=== PATIENT | female | born 1995 | race Caucasian/White ===

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

== ENCOUNTER 2017-10-20 22:54 | Emergency (ER) | payer OTHER ==
--- NOTE | 2017-10-21 00:38 | ED ---
General Adult HPI - General Chief complaint: Extremity Injury, Upper Stated complaint: ELBOW INJURY Time Seen by Provider: 10/21/17 00:20 Source: patient, RN notes reviewed Mode of arrival: ambulatory Limitations: no limitations - History of Present Illness Initial comments: 22-year-old female since to the emergency department for a chief complaint of left elbow pain 2 hours. Patient states she was jumping on the trampoline when she went to catch herself with her arms and had left elbow pain. Patient states she heard a pop in her left elbow. Patient states her right elbow was hurting somewhat but has resolved at this time. Patient denies any pain in the left shoulder and left wrist or hand. Patient did not hit her head or sustain any other injuries.Patient has no other complaints at this time including shortness of breath, chest pain, abdominal pain, nausea or vomiting, headache, or visual changes. - Related Data Home Medications Medication Instructions Recorded Confirmed Lansoprazole [Prevacid] 30 mg PO DAILY 08/13/16 08/13/16 Velivet Control 1 tab PO DAILY 08/13/16 08/13/16 Previous Rx's Medication Instructions Recorded Buta/APAP/Caf/Cod [id number] 1 - 2 cap PO Q4H #12 capsule 08/13/16 [Fioricet w/Cod 01-370-05-30MG] Ondansetron Odt [Zofran Odt] 4 mg PO Q8HR PRN #12 tab 08/13/16 Allergies Allergy/AdvReac Type Severity Reaction Status Date / Time No Known Allergies Allergy Verified 10/20/17 23:09 Review of Systems ROS Statement: Those systems with pertinent positive or pertinent negative responses have been documented in the HPI. ROS Other: All systems not noted in ROS Statement are negative. Past Medical History Past Medical History: No Reported History History of Any Multi-Drug Resistant Organisms: None Reported Past Surgical History: No Surgical Hx Reported Past Psychological History: No Psychological Hx Reported Smoking Status: Never smoker Past Alcohol Use History: None Reported Past Drug Use History: None Reported General Exam Limitations: no limitations General appearance: alert, in no apparent distress Head exam: Present: atraumatic, normocephalic, normal inspection Eye exam: Present: normal appearance. Absent: scleral icterus, conjunctival injection ENT exam: Present: normal exam, mucous membranes moist Neck exam: Present: normal inspection, full ROM. Absent: tenderness, meningismus, lymphadenopathy Respiratory exam: Present: normal lung sounds bilaterally. Absent: respiratory distress, wheezes, rales, rhonchi, stridor Cardiovascular Exam: Present: regular rate, normal rhythm, normal heart sounds. Absent: systolic murmur, diastolic murmur, rubs, gallop, clicks Extremities exam: Present: tenderness (Tenderness to the bilateral epicondyles of the left elbow as well as the anterior elbow.), normal capillary refill ( Capillary refill less than 2 seconds and radial pulse 2+ in the upper extremities bilaterally), other (Sensation intact in lower extremities bilaterally). Absent: full ROM (Patient has about 90 of flexion of the left elbow, full extension. Full range motion of the left hand), joint swelling (No swelling or ecchymosis noted in the elbows bilaterally) Course Vital Signs 10/20/17 10/21/17 23:06 02:08 Temperature 98.1 F 98.7 F Pulse Rate 91 88 Respiratory 18 16 Rate Blood Pressure 117/83 107/58 O2 Sat by Pulse 99 99 Oximetry Medical Decision Making - Medical Decision Making 22-year-old female presents to the emergency determine for a chief complaint of left elbow pain 2 hours. Patient fell on the trampoline catching herself with her arms and felt a pop in her left elbow. Neurovascular intact in the left upper extremity. Patient denies pain in the shoulder or wrist. Negative scaphoid tenderness. X-ray shows no fracture in the left elbow. Patient likely has a sprain of the left elbow. Patient educated to rest ice compress and elevate the elbow. She was also educated to take Motrin and Tylenol for pain. Patient educated to follow up with primary care in 1-2 days. Patient aware that if symptoms do not resolve in 7-10 days she Disposition Clinical Impression: Sprain of elbow, left Disposition: HOME SELF-CARE Condition: Good Instructions: Elbow Sprain (ED), RICE Therapy (ED) Additional Instructions: Please take Motrin and Tylenol for pain. Please rest ice and elevate the elbow. Follow-up with primary care in 1-2 days. Return to the emergency department if you have any worsening symptoms. Is patient prescribed a controlled substance at d/c from ED?: No Referrals: Jo Rodriguez MD [Primary Care Provider] - 1-2 days Time of Disposition: 01:54
--- NOTE | 2017-10-21 01:04 | XR ---
EXAMINATION TYPE: XR elbow complete LT DATE OF EXAM: 10/21/2017 COMPARISON: NONE HISTORY: Elbow injury. Pain. TECHNIQUE: 3 views FINDINGS: I see no fracture nor dislocation. Joint spaces are normal. There is no sign of elbow joint effusion. IMPRESSION: Negative left elbow exam.
[2017-10-21 02:10] VITALS: BP 107/58; PULSE 88; RESP 16; TEMP 98.7
== END 2017-10-21 02:11 | disposition home or self-care (01) ==
LOC: EC 22:54
DX: S53.402A Unspecified sprain of left elbow, initial encounter (principal); W09.8XXA Fall on or from other playground equipment, initial encounter; Y93.44 Activity, trampolining
CPT/HCPCS: 99283

== ENCOUNTER 2019-06-10 15:40 | Outpatient (CLI) | payer SELFPAY ==
[2019-06-10 16:30] VITALS: BP 130/77; PULSE 119; RESP 18; TEMP 98.2
--- NOTE | 2019-06-14 06:51 | P.MSEPDOC ---
Presenting Problems - Arrival Data Date of Arrival on Unit: 06/10/19 Time of Arrival on Unit: 15:40 Mode of Transport: Ambulatory - Complaint OB-Reason for Admission/Chief Complaint: Rule Out SROM Medical History - Information : 2 Para: 0 Term: 0 : 0 Abortions: Spontaneous or Elective: 1 Number of Living Children: 0 - Gestational Age Gestational Age by MIHAI (wks/days): 38 Weeks and 2 Days - History Complications: Other Comment: Grade III placenta Review of Systems - Review of Systems Constitutional: No problems Breast: No problems ENT: No problems Cardiovascular: No problems Respiratory: No problems Gastrointestinal: No problems Genitourinary: No problems Musculoskeletal: No problems Neurological: No problems Skin: No problems Vital Signs - Temperature Temperature: 98.2 F Temperature Source: Temporal Artery Scan - Pulse Pulse Oximetery Pulse Rate: 119 Pulse Assessment Method: Pulse Oximetry - Respirations Respiratory Rate: 18 Oxygen Delivery Method: Room Air O2 Sat by Pulse Oximetry: 98 - Blood Pressure Right Arm Sitting Blood Pressure: 130/77 Blood Pressure Mean: 94 Blood Pressure Source: Automatic Cuff Medical Screen Scoring (Pre) - Cervical Exam Dilation: 4-7 cm = 2 Membranes: Intact - Uterine Contractions Frequency: > 5 minutes apart = 1 Duration: N/A Intensity: N/A - Maternal Vital Signs Maternal Temperature: N/A Maternal Blood Pressure: N/A Signs of Preeclampsia: N/A Maternal Respirations: N/A - Maternal Trauma Maternal Trauma: N/A - Assessment - Baby A Baseline FHR: 135 Heart Rate - NICHD Category: Category I (Normal) = 0 NST: Reactive Position: N/A Station: N/A - Total Score - Baby A Total Score - Baby A: 3 - Total Score - Baby B Total Score - Baby B: 3 - Total Score - Baby C Total Score - Baby C: 3 - Level of Risk - Baby A Level of Risk - Baby A: Low (0-5) - Level of Risk - Baby B Level of Risk - Baby B: Low (0-5) - Level of Risk - Baby C Level of Risk - Baby C: Low (0-5) Physician Notification (Pre) - Physician Notified Physician Notified Date: 06/10/19 Physician Notified Time: 16:05 New Order Received: Yes - Notification Comment Comment: reported neg amnisure, reactive NST, cervical exam of 4cm is the same as last per Dr Fam's exam, mild irr contx. Pt may go home and f/u in the office on 06/15/[address] Fam per t.oLolita Griffith Disposition - Disposition OB Disposition: Physician follow up in office, Triage, Discharge to home, Written follow up instructions reviewed Discharge Date: 06/10/19 Discharge Time: 16:19 I agree with the RN Medical Screening Exam: Yes Risk & Benefit of care provided described in d/c instruction: Yes Diagnosis: FALSE LABOR AT OR AFTER 37 COMPLETED WEEKS OF GESTATION
== END 2019-06-10 16:22 | disposition home or self-care (01) ==
LOC: FBPOP 15:40
PROVIDERS: ATTEND Obstetrics & Gynecology
DX: O47.1 False labor at or after 37 completed weeks of gestation (principal); Z3A.38 38 weeks gestation of pregnancy
CPT/HCPCS: 59025; 99213

== ENCOUNTER 2021-11-29 17:47 | Emergency (ER) | payer OTHER ==
[2021-11-29 18:12] VITALS: BP 129/69; PULSE 71; RESP 16; TEMP 98.3
[2021-11-29] MEDS ORDERED: SODIUM CHLORIDE 0.9% 1,000 ML IV STA (20:14)
[2021-11-29] MEDS ORDERED: ONDANSETRON 4 MG/2 ML VIAL IVP STA (20:14)
[2021-11-29 20:31] LABS: Basophils % (A) 0 %; Eosinophils # (A) 0.1 k/uL (0-0.7); Eosinophils % (A) 2 %; HCT 41.7 % (34.0-46.0); Lymphocytes % (A) 35 %; MCHC 33.6 g/dL (31.0-37.0); MCV 89.1 fL (80.0-100.0); Monocytes # (A) 0.3 k/uL (0-1.0); Monocytes % (A) 4 %; Neutrophils # (A) 4.9 k/uL (1.3-7.7); Neutrophils % (A) 58 %; Platelet Count 312 k/uL (150-450); RBC 4.67 m/uL (3.80-5.40); RDW 12.9 % (11.5-15.5); WBC 8.5 k/uL (3.8-10.6)
[2021-11-29 20:42] LABS: ALT 17 U/L (4-34); AST 22 U/L (14-36); African American GFR (CKD) >90 (>60 ml/min/1.73 sqM); Albumin 4.9 g/dL (3.5-5.0); Alkaline Phosphatase 101 U/L (38-126); Anion Gap 13 mmol/L; Blood Urea Nitrogen 14 mg/dL (7-17); Calcium 9.9 mg/dL (8.4-10.2); Carbon Dioxide 23 mmol/L (22-30); Chloride 103 mmol/L (98-107); Glucose 87 mg/dL (74-99); Non-African American GFR(CKD) >90 (>60 ml/min/1.73 sqM); Sodium 139 mmol/L (137-145); Total Bilirubin 0.3 mg/dL (0.2-1.3); Total Protein 7.9 g/dL (6.3-8.2)
--- NOTE | 2021-11-29 20:45 | ED ---
General Adult HPI - General Chief complaint: Vaginal Bleeding Stated complaint: vaginal bleeding Time Seen by Provider: 11/29/21 19:50 Source: patient, RN notes reviewed Mode of arrival: ambulatory Limitations: no limitations - History of Present Illness Initial comments: 26-year-old female presents to the emergency department for evaluation of heavy vaginal bleeding x3 days. Reports passing large clots. States she had a moderate amount of abdominal cramping preceding the onset of bleeding. States last menstrual period was in September. status is unknown. Complains of mild nausea and some dizziness. Denies fever, chills, chest pain, shortness of breath, back pain, flank pain, abdominal pain, vomiting, diarrhea, or dysuria. - Related Data Home Medications Medication Instructions Recorded Confirmed Vit No.180/Iron/Folic 1 caplet PO 06/10/19 [ Plus Tablet] Previous Rx's Medication Instructions Recorded Ibuprofen [Motrin] 600 mg PO Q8HR PRN #30 tab 11/30/21 Allergies Allergy/AdvReac Type Severity Reaction Status Date / Time No Known Allergies Allergy Verified 10/20/17 23:09 Review of Systems ROS Statement: Those systems with pertinent positive or pertinent negative responses have been documented in the HPI. ROS Other: All systems not noted in ROS Statement are negative. Past Medical History Past Medical History: No Reported History History of Any Multi-Drug Resistant Organisms: None Reported Past Surgical History: No Surgical Hx Reported Past Psychological History: No Psychological Hx Reported Smoking Status: Never smoker Past Alcohol Use History: None Reported Past Drug Use History: None Reported General Exam Limitations: no limitations (Well-developed, well-nourished female in no acute distress. Initial temperature 98.3, pulse 71, respiration 16, blood pressure 129/69, pulse ox 99% on room air.) General appearance: alert, in no apparent distress Eye exam: Present: normal appearance. Absent: scleral icterus, conjunctival injection ENT exam: Present: mucous membranes moist Respiratory exam: Present: normal lung sounds bilaterally. Absent: respiratory distress, wheezes, rales, rhonchi, stridor Cardiovascular Exam: Present: regular rate, normal rhythm, normal heart sounds. Absent: systolic murmur, diastolic murmur, rubs, gallop, clicks GI/Abdominal exam: Present: soft, normal bowel sounds. Absent: distended, tenderness, guarding, rebound, rigid External exam: Present: normal external exam Speculum exam: Present: vaginal bleeding, other (few small clots visualized) By manual exam: Present: normal by manual exam. Absent: cervical motion tenderness, adnexal tenderness, uterine tenderness Back exam: Absent: CVA tenderness (R), CVA tenderness (L) Neurological exam: Present: alert, oriented X3, CN II-XII intact, normal gait Psychiatric exam: Present: normal affect, normal mood Skin exam: Present: warm, dry, intact, normal color. Absent: rash Course Vital Signs 11/29/21 18:09 Temperature 98.3 F Pulse Rate 71 Respiratory 16 Rate Blood Pressure 129/69 O2 Sat by Pulse 99 Oximetry - Reevaluation(s) Reevaluation #1: 11/29/21 23:29 Patient updated on results from workup. Discussed ultrasound now versus follow up outpatient. She prefers to obtain an ultrasound at this time and will discuss further treatment with her PREFINISH OPERATOR. Medical Decision Making - Medical Decision Making This is a pleasant 26-year-old nulliparous female who presents to the emergency department for evaluation 3 day history of heavy vaginal bleeding. LMP 3 weeks ago and reports typically has a consistent 28 day cycle. Upon exam, patient is well-appearing and in no acute distress. Her abdomen is soft and nontender. Pelvic exam is unremarkable with the exception of moderate amount of dark red vaginal bleeding. Laboratory studies were reviewed and are unremarkable. Hemoglobin is stable at 14. No leukocytosis. HCG is not detected. Ultrasound is normal. Given these findings, patient will be discharged home to follow up with her PREFINISH OPERATOR for recheck this week. She is prescribed Motrin for cramping discomfort. Return parameters were discussed in detail. Patient verbalizes understanding and agrees with this plan. Attending: Hussain. - Lab Data Result diagrams: 11/29/21 20:09 11/29/21 20:09 Lab Results 11/29/21 11/29/21 11/29/21 Range/Units 20:00 20:00 20:09 WBC 8.5 (3.8-10.6) k/uL RBC 4.67 (3.80-5.40) m/uL Hgb 14.0 (11.4-16.0) gm/dL Hct 41.7 (34.0-46.0) % MCV 89.1 (80.0-100.0) fL MCH 30.0 (25.0-35.0) pg MCHC 33.6 (31.0-37.0) g/dL RDW 12.9 (11.5-15.5) % Plt Count 312 (150-450) k/uL MPV 8.0 Neutrophils % 58 % Lymphocytes % 35 % Monocytes % 4 % Eosinophils % 2 % Basophils % 0 % Neutrophils # 4.9 (1.3-7.7) k/uL Lymphocytes # 3.0 (1.0-4.8) k/uL Monocytes # 0.3 (0-1.0) k/uL Eosinophils # 0.1 (0-0.7) k/uL Basophils # 0.0 (0-0.2) k/uL PT (9.0-12.0) sec INR (<1.2) APTT (22.0-30.0) sec Sodium (137-145) mmol/L Potassium (3.5-5.1) mmol/L Chloride (98-107) mmol/L Carbon Dioxide (22-30) mmol/L Anion Gap mmol/L BUN (7-17) mg/dL Creatinine (0.52-1.04) mg/dL Est GFR (CKD-EPI)AfAm (>60 ml/min/1.73 sqM) Est GFR (CKD-EPI)NonAf (>60 ml/min/1.73 sqM) Glucose (74-99) mg/dL Calcium (8.4-10.2) mg/dL Total Bilirubin (0.2-1.3) mg/dL AST (14-36) U/L ALT (4-34) U/L Alkaline Phosphatase (38-126) U/L Total Protein (6.3-8.2) g/dL Albumin (3.5-5.0) g/dL Urine Color Yellow Urine Appearance Clear (Clear) Urine pH 6.5 (5.0-8.0) Ur Specific [place] 1.020 (1.001-1.035) Urine Protein Trace H (Negative) Urine Glucose (UA) Negative (Negative) Urine Ketones Negative (Negative) Urine Blood Large H (Negative) Urine Nitrite Negative (Negative) Urine Bilirubin Negative (Negative) Urine Urobilinogen <2.0 (<2.0) mg/dL Ur Leukocyte Esterase Trace H (Negative) Urine RBC >182 H (0-5) /hpf Urine WBC 4 (0-5) /hpf Ur Squamous Epith Cells 1 (0-4) /hpf Urine Bacteria Rare H (None) /hpf Urine HCG, Qual Not Detected (Not Detectd) 11/29/21 11/29/21 Range/Units 20:09 23:01 WBC (3.8-10.6) k/uL RBC (3.80-5.40) m/uL Hgb (11.4-16.0) gm/dL Hct (34.0-46.0) % MCV (80.0-100.0) fL MCH (25.0-35.0) pg MCHC (31.0-37.0) g/dL RDW (11.5-15.5) % Plt Count (150-450) k/uL MPV Neutrophils % % Lymphocytes % % Monocytes % % Eosinophils % % Basophils % % Neutrophils # (1.3-7.7) k/uL Lymphocytes # (1.0-4.8) k/uL Monocytes # (0-1.0) k/uL Eosinophils # (0-0.7) k/uL Basophils # (0-0.2) k/uL PT 10.0 (9.0-12.0) sec INR 0.9 (<1.2) APTT 22.2 (22.0-30.0) sec Sodium 139 (137-145) mmol/L Potassium 4.0 (3.5-5.1) mmol/L Chloride 103 (98-107) mmol/L Carbon Dioxide 23 (22-30) mmol/L Anion Gap 13 mmol/L BUN 14 (7-17) mg/dL Creatinine 0.84 (0.52-1.04) mg/dL Est GFR (CKD-EPI)AfAm >90 (>60 ml/min/1.73 sqM) Est GFR (CKD-EPI)NonAf >90 (>60 ml/min/1.73 sqM) Glucose 87 (74-99) mg/dL Calcium 9.9 (8.4-10.2) mg/dL Total Bilirubin 0.3 (0.2-1.3) mg/dL AST 22 (14-36) U/L ALT 17 (4-34) U/L Alkaline Phosphatase 101 (38-126) U/L Total Protein 7.9 (6.3-8.2) g/dL Albumin 4.9 (3.5-5.0) g/dL Urine Color Urine Appearance (Clear) Urine pH (5.0-8.0) Ur Specific [place] (1.001-1.035) Urine Protein (Negative) Urine Glucose (UA) (Negative) Urine Ketones (Negative) Urine Blood (Negative) Urine Nitrite (Negative) Urine Bilirubin (Negative) Urine Urobilinogen (<2.0) mg/dL Ur Leukocyte Esterase (Negative) Urine RBC (0-5) /hpf Urine WBC (0-5) /hpf Ur Squamous Epith Cells (0-4) /hpf Urine Bacteria (None) /hpf Urine HCG, Qual (Not Detectd) - Radiology Data Radiology results: report reviewed, image reviewed Transvaginal ultrasound was obtained. Report was reviewed in its entirety. Impression per Dr. Suresh is normal uterus and endometrium. Left ovary is not seen. No evidence of torsion. Negative exam. Disposition Clinical Impression: Abnormal uterine bleeding Disposition: HOME SELF-CARE Condition: Stable Instructions (If sedation given, give patient instructions): Dysmenorrhea (ED) Additional Instructions: It will be important for you to follow up with your PREFINISH OPERATOR for further evaluation and treatment. Take Motrin 3 times daily with food. Increase fluids. Return to the emergency department with any new, worsening, or concerning symptoms. Prescriptions: Ibuprofen [Motrin] 600 mg PO Q8HR PRN #30 tab PRN Reason: Pain Is patient prescribed a controlled substance at d/c from ED?: No Referrals: Jo Rodriguez MD [Primary Care Provider] - 1-2 days [facility] PREFINISH OPERATOR [Provider Group] - 1-2 days
[2021-11-29 21:41] LABS: Appearance,Urine Clear (Clear); Bacteria,Urine Rare /hpf; Bilirubin,Urine Negative (Negative); Blood,Urine Large (Negative); Color,Urine Yellow; Glucose,Urine (UA) Negative (Negative); Ketones,Urine Negative (Negative); Leukocyte Esterase,Urine Trace (Negative); Nitrite,Urine Negative (Negative); PH, Urine 6.5 (5.0-8.0); Protein,Urine Trace (Negative); RBC,Urine >182 /hpf (0-5); Squamous Epithelial Cell,Urine 1 /hpf (0-4); Urobilinogen,Urine <2.0 mg/dL (<2.0); WBC,Urine 4 /hpf (0-5)
[2021-11-29 23:33] LABS: INR 0.9 (<1.2); Partial Thromboplastin Time 22.2 sec (22.0-30.0)
--- NOTE | 2021-11-30 00:36 | US ---
EXAMINATION TYPE: US transvaginal DATE OF EXAM: 11/30/2021 COMPARISON: CLINICAL HISTORY: abnormal uterine bleeding. Passing large clots per patient. TECHNIQUE: Transvaginal (TV). Date of LMP: 11/29/2021, G0 EXAM MEASUREMENTS: Uterus: 6.9 x 4.0 x 3.4 cm Endometrial Stripe: 0.9 cm Right Ovary: 3.4 x 1.6 x 1.8 cm 1. Uterus: Anteverted wnl 2. Endometrium: wnl 3. Right Ovary: follicles seen 4. Left Ovary: Obscured by overlying bowel gas Spectral, color and waveform doppler imaging shows good arterial and venous flow within the right o varies; there is no evidence for ovarian torsion. 5. Bilateral Adnexa: no free fluid 6. Posterior cul-de-sac: no free fluid IMPRESSION: Normal uterus and endometrium. Left ovary not seen. No evidence of ovarian torsion. Negative exam.
== END 2021-11-30 01:30 | disposition home or self-care (01) ==
LOC: EC 17:47
DX: N93.9 Abnormal uterine and vaginal bleeding, unspecified (principal)
CPT/HCPCS: 96360 ×2; 96374 ×2; 99284 ×2; 36415; 80053; 85025; 85610; 85730; 81001; 81025; 93976; 76830; J2405